=== PATIENT | female | born 1995 | race Caucasian/White ===

== ENCOUNTER 2018-11-29 01:00 | Emergency (ER) | payer BC, MEDICAID, OTHER ==
[~2018-11-29] VITALS: Ht 182.9 cm; Wt 141.9 kg
[~2018-11-29 01:00] MED LIST: ACET-1359 PO
[2018-11-29 01:15] VITALS: Ht 182.9 cm; Wt 141.9 kg
[2018-11-29] MEDS ORDERED: IBUPROFEN 600 MG TAB PO ONE (02:30)
[2018-11-29] MEDS ORDERED: LORAZEPAM 1 MG TAB PO ONE (02:30)
[2018-11-29] MEDS ORDERED: HYDR-843 PO (03:48)
[2018-11-29] MEDS ORDERED: IBUP-1542 PO (03:48)
--- NOTE | 2018-11-29 04:32 | ERD ---
ER Documentation Chief Complaint Chief Complaint chest tightness x today HPI 23-year-old female presents to the emergency department complaining of intermittent chest pain shortness of breath and left arm heaviness for the past several hours. Symptoms have now resolved. Patient states this began while laying in bed feeling stressed and anxious about her day. She states recently she took on horrible news about her mother she was diagnosed with a brain tumor and the patient found out she will be making all of her medical decisions for her. This is caused her significant stress. She has tried no medication for relief of her anxiety. She denies any homicidal or suicidal ideations. She denies any other symptoms currently. ROS All systems reviewed and are negative except as per history of present illness. Medications Home Meds Active Scripts Ibuprofen* (Motrin*) 600 Mg Tab, 600 MG PO Q6, #30 TAB Prov:DIEGO VILLA PA-C 11/29/18 Hydroxyzine Hcl* (Hydroxyzine Hcl*) 25 Mg Tablet, 25 MG PO Q8H PRN for ANXIETY, #30 TAB Prov:DIEGO VILLA PA-C 11/29/18 Reported Medications Acetaminophen (TYLENOL 500 MG TAB) 500 Mg Tab, 500 MG PO Q6 PRN for PAIN, TAB 07/12/13 Allergies Allergies: Coded Allergies: No Known Allergies (Verified Allergy, Unknown, 09/26/13) PMhx/Soc Medical and Surgical Hx: pt denies Medical Hx History of Surgery: Yes (Back of neck cyst removed ) Anesthesia Reaction: No Hx Neurological Disorder: No Hx Respiratory Disorders: No Hx Cardiac Disorders: No Hx Psychiatric Problems: No Hx Miscellaneous Medical Probl: No Hx Alcohol Use: No Hx Substance Use: No Hx Tobacco Use: No FmHx Family History: No diabetes Physical Exam Vitals Vital Signs Date Temp Pulse Resp B/P (MAP) Pulse Ox O2 O2 Flow FiO2 Time Delivery Rate 11/29/18 97.9 70 20 153/92 100 01:15 (112) Physical Exam Const: No acute distress Head: Atraumatic Eyes: Normal Conjunctiva ENT: Normal External Ears, Nose and Mouth. Neck: Full range of motion. No meningismus. Resp: Clear to auscultation bilaterally Cardio: Regular rate and rhythm, no murmurs Skin: No petechiae or rashes Back: No midline or flank tenderness Ext: No cyanosis, or edema Neur: Awake and alert Psych: Normal Mood and Affect Result Diagram: 11/29/18 0218 11/29/18 0218 Results 24 hrs Laboratory Tests Test 11/29/18 02:18 White Blood Count 10.5 10^3/ul Red Blood Count 4.19 10^6/ul Hemoglobin 12.3 g/dl Hematocrit 38.1 % Mean Corpuscular Volume 90.9 fl Mean Corpuscular Hemoglobin 29.4 pg Mean Corpuscular Hemoglobin Concent 32.3 g/dl Red Cell Distribution Width 13.1 % Platelet Count 313 10^3/UL Mean Platelet Volume 10.5 fl Immature Granulocytes % 0.200 % Neutrophils % 53.5 % Lymphocytes % 38.5 % Monocytes % 5.3 % Eosinophils % 1.9 % Basophils % 0.6 % Nucleated Red Blood Cells % 0.0 /100WBC Immature Granulocytes # 0.020 10^3/ul Neutrophils # 5.6 10^3/ul Lymphocytes # 4.0 10^3/ul Monocytes # 0.6 10^3/ul Eosinophils # 0.2 10^3/ul Basophils # 0.1 10^3/ul Nucleated Red Blood Cells # 0.0 10^3/ul Sodium Level 143 mmol/L Potassium Level 4.0 mmol/L Chloride Level 104 mmol/L Carbon Dioxide Level 28 mmol/L Anion Gap 11 Blood Urea Nitrogen 15 mg/dl Creatinine 0.72 mg/dl Est Glomerular Filtrat Rate mL/min > 60 mL/min Glucose Level 130 mg/dl Calcium Level 9.6 mg/dl Troponin I < 0.012 ng/ml Current Medications Medications Dose Sig/Feli Start Time Status Last (Trade) Ordered Route PRN Stop Time Admin Dose Reason Admin Ibuprofen 600 mg ONCE ONCE 11/29/18 DC 11/29/18 (Motrin) PO 02:30 02:18 11/29/18 02:31 Lorazepam 1 mg ONCE ONCE 11/29/18 DC (Ativan) PO 02:30 11/29/18 02:31 [place] [id number] Radiology Main Line: [phone] DIAGNOSTIC IMAGING REPORT Patient: DAGOBERTO HALEY : 1995 Age: 23 Sex: F MR #: [id number] DOS: 11/29/18 0000 Ordering MD: DIEGO VILLA PA-C Location: [facility] Room/Bed: PROCEDURE: CHEST - 1 VIEW CLINICAL INDICATION: 23-year-old female with chest pain. TECHNIQUE: A single frontal PA erect view of the chest was performed. The images were reviewed on a PACS workstation. COMPARISON: None. FINDINGS: The cardiomediastinal silhouette has a normal appearance. There is no evidence for an infiltrate. The pulmonary vascularity is within normal limits. There is no evidence for pneumothorax or pneumomediastinum. The osseous structures are intact. IMPRESSION: No evidence for active cardiopulmonary disease. .Siva Ding MD, Date Time Electronically viewed and signed by .Siva Ding MD, MD on 11/29/2018 03:43 .M/ CC: DIEGO VILLA PA-C [phone] Procedures/MDM 23-year-old female presents to the emergency department with signs and symptoms most consistent with acute anxiety reaction. Low suspicion for acute coronary syndrome, pneumothorax, pulmonary embolism, aortic dissection, or other emergencies. Patient was administered Ativan and ibuprofen in the department with significant improvement of her symptoms. On reevaluation she states she is feeling well without symptoms. Troponin was within normal limits. Chest x-ray was negative per radiology. Patient was stable for discharge and further outpatient follow-up with cardiology. She was advised to return to the department immediately for any new or worsening or concerning symptoms. She understands and agrees with plan. EKG: Interpreted by ED physician. Rate/Rhythm: Normal Sinus Rhythm with a rate of 65 bpm. QRS, ST, T-waves: No changes consistent w/ acute ischemia Impression: No evidence of ischemia or arrhythmia No evidence of life-threatening pathology at time of discharge. Pt/family in agreement with discharge plan/diagnosis. Pt/family advised to return immediately with any new or worsening symptoms. Follow-up with primary care maryy sician within the next 1-2 days. Patient's blood pressure was elevated (>120/80) but appears stable without evidence of hypertension emergency or urgency. The patient is to follow-up and pursue outpatient monitoring and therapy with their primary care physician within 1 week and return immediately if they have any new, worsening, or concerning symptoms. Disclaimer: Inadvertent spelling and grammatical errors are likely due to EHR/dictation software use and do not reflect on the overall quality of patient care. Also, please note that the electronic time recorded on this note does not necessarily reflect the actual time of the patient encounter. Departure Diagnosis: Primary Impression: Anxiety reaction Additional Impression: Chest pain Condition: Fair Patient Instructions: Anxiety Reaction Additional Instructions: Call your primary care doctor TOMORROW for an appointment during the next 1-2 days.See the doctor sooner or return here if your condition worsens before your appointment time. DIEGO VILLA PA-C Nov 29, 2018 04:32
== END 2018-11-29 03:55 | disposition home or self-care (01) ==
LOC: FTE 01:00
DX: F41.1 Generalized anxiety disorder (principal)
CPT/HCPCS: 71045; 80048; 84484; 85025; 93005; Z7502; Z7610